=== PATIENT | female | born 1985 | race Caucasian/White ===

== ENCOUNTER → 2017-11-30 12:00 | Outpatient (CLI) | payer OTHER, SELFPAY ==
[2017-11-30 11:13] VITALS: BP 117/64; BMI 22.2
[2017-12-01 17:20] LABS: HEPATITIS B SURFACE AG Negative (Negative); HSV 1 IgG 5.64 index (0.00-0.90); HSV 2 IgG < 0.91 index (0.00-0.90)
[2017-12-04 03:48] LABS: Rapid Plasmin Reagin (RPR) NONREACTIVE (NONREACTIVE)
== END ==
PROVIDERS: Family Provider Nurse Practitioner; PCP Nurse Practitioner; Visit Provider Obstetrics & Gynecology
DX: Z11.3 Encounter for screening for infections with a predominantly sexual mode of transmission (principal)
CPT/HCPCS: 36415; 86592; 86695; 86696; 87340

== ENCOUNTER → 2017-11-30 19:27 | Outpatient (CLI) | payer OTHER, SELFPAY ==
[2017-11-30 11:13] VITALS: BP 117/64; BMI 22.2
[2017-11-30 21:49] LABS: Chlamydia Trachomatis by PCR Negative (Negative); Neisserai gonorrhoeae by PCR Negative (Negative); Probe Check PASS; Sample Adequacy Control PASS; Specimen Processing Control PASS
== END ==
PROVIDERS: Family Provider Nurse Practitioner; PCP Nurse Practitioner; Visit Provider Obstetrics & Gynecology
DX: Z11.3 Encounter for screening for infections with a predominantly sexual mode of transmission (principal)
CPT/HCPCS: 87491; 87591

== ENCOUNTER → 2018-01-22 18:04 | Outpatient (CLI) | payer OTHER, SELFPAY | PROVIDERS: Family Provider Nurse Practitioner; PCP Nurse Practitioner; Visit Provider Nurse Practitioner Women's Health | DX: M54.5 Low back pain (principal) | CPT/HCPCS: 87086; 87088 ==

== ENCOUNTER → 2018-01-26 12:13 | Outpatient (CLI) | payer OTHER, SELFPAY ==
--- NOTE | 2018-01-26 12:14 | US_ITS ---
STUDY: ULTRASOUND OF THE FEMALE PELVIS - COMPLETE REASON FOR EXAM: Female, 33 years old. Low back pain. IUD. LMP: January 25, 2018. TECHNIQUE: Transabdominal and Transvaginal TECHNICAL QUALITY: Adequate. COMPARISON: None. FINDINGS: The uterus is anteverted and is in a midline position. The uterus measures 10.5 cm x 7.2 cm x 4.3 cm. Normal uterine cervix. The endometrium measures 13.0 mm in thickness, and is hyperechoic. There is no demonstrated endometrial mass. There is no demonstrated myometrial mass. I.U.D. - The patient does have an I.U.D. it is located in the fundal aspect of the uterus. The right ovary is visualized. The right ovary measures 5.7 cm x 4.9 cm x 3.5 cm. There is a 5.3 cm x 4.3 cm x 3.1 cm right ovarian cyst. There is no visualized right adnexal mass or complex lesion. There is normal arterial and normal venous vascularity. The left ovary is visualized. The left ovary measures 3.9 cm x 3.7 cm x 2.5 cm. There is a 3.3 cm x 2.9 cm x 1.9 cm cyst in the left ovary. There is no visualized left adnexal mass or complex lesion. There is normal arterial and normal venous vascularity. There is minimal fluid in the cul-de-sac. The pre void volume of the bladder was 582.4 ml. Polycystic ovary disease: No. US/Pelvic (Non ) IMPRESSION: Bilateral ovarian cysts or solid the right side. IMP is seen within the fundal portion of the uterus. Electronically Signed: Eric Cherry MD at 14:04 EDT Tel [phone], Service support ,
--- NOTE | 2018-01-26 12:14 | US_ITS ---
STUDY: ULTRASOUND OF THE FEMALE PELVIS - COMPLETE REASON FOR EXAM: Female, 33 years old. Low back pain. IUD. LMP: January 25, 2018. TECHNIQUE: Transabdominal and Transvaginal TECHNICAL QUALITY: Adequate. COMPARISON: None. FINDINGS: The uterus is anteverted and is in a midline position. The uterus measures 10.5 cm x 7.2 cm x 4.3 cm. Normal uterine cervix. The endometrium measures 13.0 mm in thickness, and is hyperechoic. There is no demonstrated endometrial mass. There is no demonstrated myometrial mass. I.U.D. - The patient does have an I.U.D. it is located in the fundal aspect of the uterus. The right ovary is visualized. The right ovary measures 5.7 cm x 4.9 cm x 3.5 cm. There is a 5.3 cm x 4.3 cm x 3.1 cm right ovarian cyst. There is no visualized right adnexal mass or complex lesion. There is normal arterial and normal venous vascularity. The left ovary is visualized. The left ovary measures 3.9 cm x 3.7 cm x 2.5 cm. There is a 3.3 cm x 2.9 cm x 1.9 cm cyst in the left ovary. There is no visualized left adnexal mass or complex lesion. There is normal arterial and normal venous vascularity. There is minimal fluid in the cul-de-sac. The pre void volume of the bladder was 582.4 ml. Polycystic ovary disease: No. US/Transvaginal Non- IMPRESSION: Bilateral ovarian cysts or solid the right side. IMP is seen within the fundal portion of the uterus. Electronically Signed: Eric Cherry MD at 14:04 EDT Tel [phone], Service support ,
== END ==
PROVIDERS: Family Provider Nurse Practitioner; PCP Nurse Practitioner; Visit Provider Nurse Practitioner Women's Health
DX: Z30.431 Encounter for routine checking of intrauterine contraceptive device (principal); N83.202 Unspecified ovarian cyst, left side; N83.201 Unspecified ovarian cyst, right side
CPT/HCPCS: 76830; 76856; 93976

== ENCOUNTER → 2018-02-18 18:57 | Outpatient (CLI) | payer OTHER, SELFPAY | PROVIDERS: Visit Provider Physician Assistant | DX: J02.9 Acute pharyngitis, unspecified (principal) | CPT/HCPCS: 87081 ==

== ENCOUNTER → 2018-03-25 08:00 | Outpatient (CLI) | payer OTHER, SELFPAY ==
--- NOTE | 2018-03-25 08:01 | US_ITS ---
STUDY: ULTRASOUND OF THE FEMALE PELVIS - COMPLETE REASON FOR EXAM: Female, 33 years old. History of ovarian cysts. LMP: March 24, 2018. TECHNIQUE: Transvaginal TECHNICAL QUALITY: Adequate. COMPARISON: Comparison is made with prior study dated January 26, 2018. FINDINGS: The uterus is anteverted and is in a midline position. The uterus measures 7.9 cm x 5.2 cm x 4.2 cm. Normal uterine cervix. The endometrium measures 7.2 mm in thickness, and is hyperechoic. There is no demonstrated endometrial mass. There is no demonstrated myometrial mass. I.U.D. - The patient does have an I.U.D. The right ovary is visualized. The right ovary measures 3.2 cm x 2.1 cm x 2.4 cm. A dominant follicle is seen in the right ovary. This measures 1.4 cm x 1.3 cm. There is no visualized right adnexal mass or complex lesion. There is normal arterial and normal venous vascularity. The left ovary is visualized. The left ovary measures 3.5 cm x 3.9 cm x 2.2 cm. There is a 2.6 cm x 3.7 cm x 1.7 cm this is essentially unchanged. There is no visualized left adnexal mass or complex lesion. There is normal arterial and normal venous vascularity. There is no fluid in the cul-de-sac. Polycystic ovary disease: No. US/Transvaginal Non- IMPRESSION: Interval decrease in size of these right ovarian cyst. Stable simple cyst in the left ovary. Electronically Signed: Eric Cherry MD at 9:27 EDT Tel [phone], Service support ,
== END ==
PROVIDERS: Family Provider Nurse Practitioner; PCP Nurse Practitioner; Visit Provider Obstetrics & Gynecology
DX: N83.01 Follicular cyst of right ovary (principal); N83.292 Other ovarian cyst, left side
CPT/HCPCS: 76830; 93976

== ENCOUNTER 2018-08-04 18:45 | Outpatient (RCR) | payer OTHER, SELFPAY ==
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
--- NOTE | 2018-03-31 18:45 | DT_ITS ---
This patient was seen during an EMR downtime March 29, 2018 - April 05, 2018. This patient may have a combination of paper and electronic documentation or all paper documentation. All documentation is viewable within the e-chart portion of [facility] for each patient visit.
--- NOTE | 2018-10-15 13:54 | MASS.DISCH ---
Massage Therapy Discharge Summary: Dear Antonia Green: Lenore Bolton, 1985, was seen for a massotherapy evaluation on 11/11/2017 with a diagnosis of back pain. She was treated with 6 sessions of massage therapy which consisted of MFR, muscle stripping and a heat pack to loosen muscles. Due to time constraints with insurance, at this time I will discharge this patient from our care here at [facility] facility. I hope to continue her therapy in the new year 2019. Sincerely, Bethany Colorado LMT
--- NOTE | 2018-10-15 13:58 | DS.PCM_ITS ---
Massage Therapy Discharge Summary: Dear Antonia Green: Lenore Bolton, 1985, was seen for a massotherapy evaluation on 11/11/2017 with a diagnosis of back pain. She was treated with 6 sessions of massage therapy which consisted of MFR, muscle stripping and a heat pack to loosen muscles. Due to time constraints with insurance, at this time I will discharge this patient from our care here at [facility] facility. I hope to continue her therapy in the new year 2019. Sincerely, Bethany Cloorado LMT
== END 2018-08-04 19:00 | disposition home or self-care (01) ==
LOC: MASS 18:45
PROVIDERS: Family Provider Nurse Practitioner; PCP Nurse Practitioner; Visit Provider Nurse Practitioner
DX: M79.1 Myalgia (principal)
CPT/HCPCS: 97124

== ENCOUNTER → 2018-08-18 14:06 | Outpatient (CLI) | payer OTHER, SELFPAY ==
[2018-08-18 16:29] LABS: AST(SGOT) 17 U/L (15-37); Alanine Aminotransfer ALT/SGPT 19 U/L (13-56); Albumin, Serum 3.9 g/dL (3.2-5.0); Alkaline Phosphatase 49 U/L (45-117); Bilirubin, Direct 0.06 mg/dL (0.00-0.30); Globulin 3.9 g/dL (2.2-4.2); Protein, Total 7.8 g/dL (6.4-8.2)
== END ==
PROVIDERS: Family Provider Nurse Practitioner; PCP Nurse Practitioner; Referring Provider Nurse Practitioner; Visit Provider Nurse Practitioner
DX: Z00.00 Encounter for general adult medical examination without abnormal findings (principal); B35.1 Tinea unguium
CPT/HCPCS: 36415; 80076

== ENCOUNTER 2019-03-28 11:02 | Day surgery (SDC) | payer OTHER, SELFPAY ==
[2018-11-18 08:25] VITALS: BMI 22.2
[2019-03-28 11:50] VITALS: BP 125/76; PULSE 74; RESP 18; TEMP 37.1; O2SAT 100; BMI 22.9
[2019-03-28 11:55] LABS: Internal QC Validated? YES +Cl - CLEAR BKGD; Pregnancy, Urine Negative Negative
--- NOTE | 2019-03-28 12:45 | TONS_PTH ---
PATIENT: JUSTINO NEGRETE [place] [facility] [id number] AGE/SX: 34/F ROOM: RE03/28/[address]: Dr. Nate Das MD : 1985 BED: DIS: 03/28/2019 SPEC #: [id number] RECD: 03/28/19 16:16 STATUS: SUNNY DANISH #: [id number] LORI: 03/28/19 12:[address]: Nate Das DEPT: SURGICAL PATHOLOGY RECD BY: Ovidio Valle ENTERED: 03/29/19 09:09 SP TYPE: TONSILS OTHR DR: Antonia Green, LIFE TRAINER-C Tissues: Tonsil, NOS Procedures: Surgery Specimen Level III HEADER OPERATION: Tonsillectomy PRE-OP DIAGNOSIS: Hypertrophy of tonsils, chronic tonsillitis TISSUE SUBMITTED: Tonsil, tie on right MICROSCOPIC DIAGNOSIS Bilateral tonsils: Reactive lymphoid hyperplasia, consistent with chronic tonsillitis. Focal actinomyces colonization. SJ:riki 03/30/19 MICROSCOPIC DESCRIPTION Slides are reviewed. GROSS DESCRIPTION Received is one container labeled with the patient's name and designated tonsils - tie on right are two tonsils that in aggregate weigh 6.6 gm. The right tonsil has a tie on it and measures 3 x 1.5 x 1 cm. The left tonsil measures 3 x 1.5 x 1 cm. Both tonsils are similar in appearance. The external surfaces are pink-lam, smooth, glistening and somewhat lobulated. Focally they are hemorrhagic, granular and bear cautery artifact. Serial cross sections through the tonsils reveal normal tonsillar architecture. Sections are submitted in two cassettes as follows: 1 - right tonsil, 2 - left tonsil. / AM:riki 03/29/19 TC:3 CPT: 19022 x2
--- NOTE | 2019-03-28 13:13 | DCINST_ITS ---
Discharge Diet: Soft diet Discharge Activity: Return to Normal Activity Allergies/Adverse Reactions: Allergies No Known Allergies Allergy (Unverified 03/23/19 08:35) Medications to take at Discharge Levonorgesterol [Mirena] 1 each IY X1 03/23/19 Magnesium Oxide [Magnesium] 250 mg PO DAILY 03/23/19 Vits [Prenatabs FA] 1 tablet PO DAILY 03/23/19 Primary Care Physician: Antonia Green NP-C [Primary Care Provider] - Test Results: Test results from this visit will be discussed in further detail at your follow- up appointment, if applicable.
[2019-03-28] MEDS: Bupivacaine Mpf 0.5% 30 ML VIAL (13:30)
--- NOTE | 2019-03-28 13:48 | PCM.OPRPT ---
Report of Operation Date of Procedure: 03/28/19 Pre-Operative Diagnosis: chronic tonsillitis Post-Operative Diagnosis: same Surgery/Procedure Performed:: tonsillectomy Description of Surgical Findings:: 2+ tonsils Type of Anesthesia:: General Anesthesiologist: Carroll Gonzalez Specimen's removed: tonsils Estimated Blood Loss (mL): minimal Description of Procedure: The patient was taken to the OR on 03/28/19. She was placed in the supine position on the OR table. She was given sufficient general endotracheal anesthesia. The table was turned 90 degrees in a clockwise fashion. The patient was draped steriley. A El mouthgag was inserted into the mouth and she was suspended on a blackmon stand. The adenoid was bed was inspected, they were found to be minimal and left alone. The right tonsil was grasped with an Allis clamp and removed using Bovie cautery. Absolute hemostasis was achieved using suction cautery. The left tonsil was grasped with an Allis clamp and removed using Bovie cautery. Absolute hemostasis was achieved using suction cautery. .5% Marcaine was placed on an adenoid sponge and topically applied to each tonsillar fossa for one minute on each side and then removed. The gag was closed. It was re opened to inspect for bleeding and there was none. The gag was removed. The patient was awoken and brought to the recovery room in stable condition. Blood loss minimal, replacement none. Sponge, needle and instrument count were correct at the end of the procedure.
[2019-03-28 14:00] VITALS: BP 118/67; BP 125/76; PULSE 92; RESP 18; TEMP 36.4; O2SAT 100
[2019-03-28 14:15] VITALS: BP 109/68; BP 125/76; PULSE 87; RESP 18; O2SAT 100
[2019-03-28 14:25] VITALS: BP 122/76; BP 125/76; PULSE 73; RESP 18; TEMP 36.3; O2SAT 100
[2019-03-28] MEDS: Acetaminophen 325 MG Tablet 650 MG PO (15:19)
[2019-03-28] MEDS: oxyCODONE 5 MG Tablet PO (15:19)
[2019-03-28 15:38] VITALS: BP 121/74; BP 125/76; PULSE 71; RESP 16; TEMP 37.6; O2SAT 100
== END 2019-03-28 15:39 | disposition home or self-care (01) ==
LOC: SDC 11:03 → AC 11:36
PROVIDERS: Anesthesiology; Family Provider Nurse Practitioner; PCP Nurse Practitioner; Referring Provider Otolaryngology; Visit Provider Otolaryngology
PROC: (CPT 42826; principal; 2019-03-28 12:30)
DX: J35.01 Chronic tonsillitis (principal)
CPT/HCPCS: 42826; 81025; 88304; J7120; J2405

== ENCOUNTER 2019-10-15 11:45 | Outpatient (RCR) | payer OTHER, SELFPAY ==
[2018-11-18 08:25] VITALS: BMI 22.2
--- NOTE | 2019-01-19 18:24 | MASS.EVAL ---
Massage Therapy Evaluation: DATE OF INITIAL EVALUATION: 12-03-2018 Referring Physician: Antonia Green SUBJECTIVE: Lenore Bolton, date of 01-07-1975, is a 47 year old female who works at [employer] in . She was seen for a massotherapy evaluation with a diagnosis of muscular aches. She presents today with neck,shoulder, and back tension as well as LBP. She also complains of frequent headaches. On a pain scale of 1-10 she states her pain in a 1 today. Her medications include vitamins and an IUD. She states that her health is very good with no limits in daily activities. Her goals of treatment are to reduce headaches, reduce tension and reduce back pain. OBJECTIVE: Upon examination and palpation I found she had point tenderness throughout her suboccipitals. The muscles in her head, neck, and shoulders were very tight. Her scalp was rigid. Her masseter was rigid. right side greater than left. Her right scalenes and bilateral levators were very rigid with knots. Her upper traps and low traps were tight and ropey. Her paraspinals are also rigid and ropey. Lenore?s first treatment consisted of MFR, muscle stripping, PNMT to her cervicals as well as heat pack to loosen muscles. ASSESSMENT: Using various techniques I was able to achieve moderate releases overall. The patient tolerated deep pressure well and relaxed easily PLAN: I plan to see this patient on an as-needed basis for a total of 10 visits in the year 2019. Bethany Colorado LMT
--- NOTE | 2019-01-19 18:29 | MASS.EVAL_ITS ---
Massage Therapy Evaluation: DATE OF INITIAL EVALUATION: 12-03-2018 Referring Physician: Antonia Green SUBJECTIVE: Lenore Bolton, date of 01-07-1975, is a 47 year old female who works at [employer] in . She was seen for a massotherapy evaluation with a diagnosis of muscular aches. She presents today with neck,lashae ulder, and back tension as well as LBP. She also complains of frequent headaches. On a pain scale of 1-10 she states her pain in a 1 today. Her medications include vitamins and an IUD. She states that her health is very good with no limits in daily activities. Her goals of treatment are to reduce headaches, reduce tension and reduce back pain. OBJECTIVE: Upon examination and palpation I found she had point tenderness throughout her suboccipitals. The muscles in her head, neck, and shoulders were very tight. Her scalp was rigid. Her masseter was rigid. right side greater than left. Her right scalenes and bilateral levators were very rigid with knots. Her upper traps and low traps were tight and ropey. Her paraspinals are also rigid and ropey. Lenore?s first treatment consisted of MFR, muscle stripping, PNMT to her cervicals as well as heat pack to loosen muscles. ASSESSMENT: Using various techniques I was able to achieve moderate releases overall. The patient tolerated deep pressure well and relaxed easily PLAN: I plan to see this patient on an as-needed basis for a total of 10 visits in the year 2019. Bethany Colorado LMT
--- NOTE | 2019-10-17 12:41 | DS.PCM_ITS ---
Massage Therapy Discharge Summary: Discharge Date: 10/17/2019 Lenore was seen for a massotherapy evaluation on 12/03/2018 with the diagnosis of muscular aches. She was treated with four sessions of massage therapy consisting of moderate to deep pressure soft tissue techniques, myofascial release and trigger point compression to her cervical, thoracic, lower back, and feet. Lenore responded well to the therapy by reporting decreased tension and pain throughout her head, neck, shoulders, lower back and feet. Her goals for therapy were met throughout the treatment sessions. At this time this patient is being discharged from our care at [facility] facility.
== END 2019-10-15 19:00 | disposition home or self-care (01) ==
LOC: MASS 11:45
PROVIDERS: Family Provider Nurse Practitioner; PCP Nurse Practitioner; Referring Provider Nurse Practitioner; Visit Provider Nurse Practitioner
DX: M79.10 Myalgia, unspecified site (principal)
CPT/HCPCS: 97124

== ENCOUNTER → 2019-11-01 14:23 | Outpatient (CLI) | payer OTHER, SELFPAY ==
[2019-11-01 11:12] VITALS: BMI 22.9
[2019-11-01 17:09] LABS: Chlamydia Trachomatis by PCR Negative (Negative); Neisserai gonorrhoeae by PCR Negative (Negative); Probe Check PASS; Sample Adequacy Control PASS; Specimen Processing Control PASS
[2019-11-03 17:51] LABS: HPV APTIMA, High Risk Positive (Negative)
== END ==
PROVIDERS: PCP Nurse Practitioner; Visit Provider Nurse Practitioner Women's Health
DX: Z12.4 Encounter for screening for malignant neoplasm of cervix (principal); A64 Unspecified sexually transmitted disease
CPT/HCPCS: 87491; 87591; 87624; 88175; G0145

== ENCOUNTER → 2020-11-12 | Outpatient (CLI) | payer OTHER, SELFPAY ==
[2020-11-12 15:33] VITALS: BMI 22.5
[2020-11-17 03:07] LABS: HPV Genotype 16, Aptima Negative (Negative)
[2020-11-17 09:27] LABS: HPV APTIMA, High Risk Positive (Negative); HPV Genotype 18,45 Aptima Negative (Negative)
== END | disposition home or self-care (01) ==
PROVIDERS: PCP Nurse Practitioner; Referring Provider Nurse Practitioner Women's Health; Visit Provider Nurse Practitioner Women's Health
DX: Z12.4 Encounter for screening for malignant neoplasm of cervix (principal)
CPT/HCPCS: 87624; 88175; G0145